=== PATIENT | female | born 1965 | race Caucasian/White ===

== ENCOUNTER 2017-01-12 20:58 | Emergency (ER) | payer BC ==
[2017-01-12 21:04] VITALS: BP 136/90
== END 2017-01-12 22:02 | disposition home or self-care (01) ==
LOC: ED 20:58
DX: S61.213A Laceration without foreign body of left middle finger without damage to nail, initial encounter (principal); W22.8XXA Striking against or struck by other objects, initial encounter; Y93.89 Activity, other specified; Y99.8 Other external cause status; Y92.89 Other specified places as the place of occurrence of the external cause
CPT/HCPCS: A4570